=== PATIENT | female | born 1960 | race Two or more races ===

== ENCOUNTER 2022-01-25 13:11 | Inpatient (IN) | payer MEDICAID, OTHER ==
[~2022-01-25] VITALS: Ht 172.7 cm; Wt 99.0 kg
[2022-01-25 15:14] LABS: White Blood Cell 11.2 10^3/uL (4.4-10.8)
[2022-01-25 15:15] LABS: Basophils # (auto) 0 10 ^3/uL (0-0.2); Eosinophils # (auto) 0.1 10 ^3/uL (0-0.8); Eosinophils % (auto) 0.8 % (0.0-7.0); Hemoglobin 14.1 g/dL (12.2-16.2); Lymphocytes # (auto) 4.2 10 ^3/uL (0.4-5.4); Lymphocytes % (auto) 37.5 % (10.0-50.0); Monocytes # (auto) 0.8 10 ^3/uL (0-1.3); Monocytes % (auto) 7.4 % (0.0-12.0); Neutrophils # (auto) 6.1 10 ^3/uL (1.6-8.6); Nucleated Red Blood Cells % 0.1 %; Red Blood Cells 4.01 10^6/uL (4.0-5.20)
[2022-01-25 15:16] LABS: Hematocrit 41.2 % (36.0-46.0); Mean Corpuscular Hemoglobin 35.2 pg (28.0-32.0); Mean Corpuscular Hgb Conc. 34.3 g/dL (32.0-36.0); Mean Corpuscular Volume 102.6 fL (80.0-100.0); Red Cell Distribution Width 15.7 % (11.8-14.3)
[2022-01-25 15:26] LABS: Calcium 8.8 mg/dL (8.5-10.1); Magnesium 2.6 mg/dL (1.6-2.6); Potassium 3.2 mmol/L (3.5-5.1)
[2022-01-25 15:29] LABS: BUN/Creatinine Ratio 10.8; Bilirubin, Total 0.5 mg/dL (0.2-1.0)
[2022-01-25] MEDS ORDERED: ONDANSETRON HCL 4 MG/2 ML VIAL IV PRN (22:00)
[2022-01-25] MEDS ORDERED: HYDROcodone-ACET 5/325MG TAB PO PRN (22:00)
[2022-01-25] MEDS ORDERED: ACETAMINOPHEN 325 MG TAB PO PRN (22:00)
[2022-01-25] MEDS: SODIUM CHLOR 0.9% PF (SALINE LOCK) 10ML VIAL/SYR IV SCH (22:00)
[2022-01-25] MEDS ORDERED: DOCUSATE SOD 100 MG CAP PO PRN (22:00)
[2022-01-25] MEDS ORDERED: ASCO500T11 PO (22:53)
[2022-01-25] MEDS ORDERED: MAGN400T40 PO (22:53)
[2022-01-25] MEDS ORDERED: GABA-339 PO (22:53)
[2022-01-25] MEDS ORDERED: ASPITAB34 OR (22:53)
[2022-01-25] MEDS ORDERED: FURO40TA4 PO (22:53)
[2022-01-25] MEDS ORDERED: ALLO100T PO (22:53)
[2022-01-25] MEDS ORDERED: ATOR-47 PO (22:53)
[2022-01-25] MEDS ORDERED: COLC1TAB3 PO (22:53)
[2022-01-25] MEDS ORDERED: PANT1INJ3 IV (22:53)
[2022-01-25] MEDS ORDERED: CARV3.1240 PO (22:53)
[2022-01-25] MEDS ORDERED: CHOL20007 OR (22:53)
[2022-01-25] MEDS ORDERED: BACL10TA PO (22:53)
[2022-01-25] MEDS ORDERED: NICOTINE 14 MG/24HR TOPICAL PATCH TD ONE (23:00)
[2022-01-25] MEDS ORDERED: MORPHINE SULFATE INJ 2 MG/ml SYRG IV PRN (23:15)
[2022-01-25] MEDS ORDERED: NITROGLYCERIN 0.4 MG SL TAB SL PRN (23:15)
[2022-01-25 23:40] LABS: Free T3 2.74 pg/mL (2.3-4.2); Free T4 (Free Thyroxine) 1.09 ng/dL (0.89-1.76)
[2022-01-25 23:55] VITALS: BP 127/58
[2022-01-26] MEDS: APIXABAN 5 MG TAB PO SCH ×3 (00:26→22:25)
[2022-01-26] MEDS: FAMOTIDINE (10MG/ML) 2ML VL IV SCH ×2 (00:27→09:40)
[2022-01-26] MEDS: POTASSIUM CHL 20MEQ/100ML 100 ML IV SCH ×2 (00:27→05:45)
[2022-01-26] MEDS ORDERED: PANT1INJ3 IV (02:59)
[2022-01-26] MEDS ORDERED: PANT40TA2 PO (02:59)
[2022-01-26] MEDS ORDERED: SENN1TAB14 PO (03:05)
[2022-01-26] MEDS ORDERED: DOCU-94 PO (03:05)
[2022-01-26] MEDS ORDERED: OMEG100078 PO (03:09)
[2022-01-26] MEDS ORDERED: POTA10TA51 PO (03:09)
[2022-01-26 04:46] LABS: Urine Bacteria MANY /hpf (None Seen); Urine Blood Negative /uL (Negative); Urine Hyaline Cast FEW /lpf (0 - 2); Urine Specific Gravity 1.018 (1.001-1.035); Urine WBC 272 /hpf (0 - 5); Urine WBC Clumps PRESENT /hpf (None Seen)
[2022-01-26 05:00] VITALS: BP 118/39
[2022-01-26] MEDS: SODIUM CHLOR 0.9% PF (SALINE LOCK) 10ML VIAL/SYR IV SCH ×3 (05:45→22:20)
[2022-01-26 07:16] LABS: Basophils # (auto) 0 10 ^3/uL (0-0.2); Eosinophils # (auto) 0.1 10 ^3/uL (0-0.8); Eosinophils % (auto) 0.6 % (0.0-7.0); Lymphocytes # (auto) 5.3 10 ^3/uL (0.4-5.4); Nucleated Red Blood Cells % 0.1 %
[2022-01-26 07:18] LABS: Basophils % (auto) 0.2 % (0.0-2.0); Hematocrit 36.4 % (36.0-46.0); Hemoglobin 12.5 g/dL (12.2-16.2); Lymphocytes % (auto) 47.8 % (10.0-50.0); Mean Corpuscular Hemoglobin 35.4 pg (28.0-32.0); Mean Corpuscular Hgb Conc. 34.4 g/dL (32.0-36.0); Mean Corpuscular Volume 102.8 fL (80.0-100.0); Monocytes # (auto) 0.8 10 ^3/uL (0-1.3); Monocytes % (auto) 7.4 % (0.0-12.0); Neutrophils # (auto) 4.9 10 ^3/uL (1.6-8.6); Red Blood Cells 3.54 10^6/uL (4.0-5.20); Red Cell Distribution Width 15.4 % (11.8-14.3); White Blood Cell 11.1 10^3/uL (4.4-10.8)
[2022-01-26 07:29] LABS: Potassium 3.6 mmol/L (3.5-5.1)
[2022-01-26 07:34] LABS: Albumin 2.8 g/dL (3.4-5.0); BUN/Creatinine Ratio 12.9; Bilirubin, Total 0.4 mg/dL (0.2-1.0); Calcium 8.9 mg/dL (8.5-10.1); Total Protein 6.2 g/dL (6.4-8.2)
[2022-01-26 09:00] VITALS: BP 128/48
[2022-01-26] MEDS: ASPirin 81 mg TAB PO SCH (09:40)
[2022-01-26] MEDS ORDERED: FUROSEMIDE 40 MG/4 ML VIAL IV SCH (10:45)
[2022-01-26 13:00] VITALS: BP 112/67
[2022-01-26] MEDS ORDERED: DOCUSATE SOD 100 MG CAP PO PRN (13:30)
[2022-01-26] MEDS ORDERED: SENNA 8.6 MG TAB PO PRN (13:30)
[2022-01-26] MEDS ORDERED: BACLOFEN 10 MG TAB PO PRN (13:30)
[2022-01-26 16:46] VITALS: BP 125/47
[2022-01-26] MEDS: FUROSEMIDE 40 MG TAB PO SCH (17:16)
[2022-01-26 20:00] VITALS: BP 128/48
[2022-01-26 21:58] VITALS: BP 143/67
[2022-01-26] MEDS ORDERED: ATORVASTATIN 20 MG TAB PO SCH (22:00)
[2022-01-26] MEDS: CARVEDILOL 3.125 MG TAB PO SCH (22:25)
[2022-01-26] MEDS: GABAPENTIN 300 MG CAP PO SCH (22:26)
[2022-01-26] MEDS: ASCORBIC ACID 500 MG TAB PO SCH (22:26)
[2022-01-27 05:00] VITALS: BP 128/71
[2022-01-27] MEDS: SODIUM CHLOR 0.9% PF (SALINE LOCK) 10ML VIAL/SYR IV SCH (06:32)
[2022-01-27] MEDS: FUROSEMIDE 40 MG TAB PO SCH (06:33)
[2022-01-27 08:00] VITALS: BP 128/48
[2022-01-27] MEDS ORDERED: cefTRIAXone 1GM/50ML D5W 50 ML IV SCH (09:00)
[2022-01-27 09:46] VITALS: BP 106/47
[2022-01-27] MEDS ORDERED: FAMOTIDINE (10MG/ML) 2ML VL IV SCH (10:00)
[2022-01-27] MEDS ORDERED: MAGNESIUM OXIDE 400 MG TAB PO SCH (10:00)
[2022-01-27] MEDS: ASPirin 81 mg TAB PO SCH (10:00)
[2022-01-27] MEDS ORDERED: ALLOPURINOL 100 MG TAB PO SCH (10:00)
[2022-01-27] MEDS: APIXABAN 5 MG TAB PO SCH (10:00)
[2022-01-27] MEDS ORDERED: NICOTINE 21MG/24 HR TOPICAL PATCH TD SCH (10:00)
[2022-01-27] MEDS: GABAPENTIN 300 MG CAP PO SCH (10:00)
[2022-01-27] MEDS ORDERED: CHOLECALCIFEROL (VITD3) 2,000 UNIT CAP/TAB PO SCH (10:00)
[2022-01-27] MEDS: CARVEDILOL 3.125 MG TAB PO SCH (10:00)
[2022-01-27] MEDS: ASCORBIC ACID 500 MG TAB PO SCH (10:00)
[2022-01-27] MEDS ORDERED: COLCHICINE 0.6 MG CAP PO SCH (10:00)
[2022-01-27] MEDS ORDERED: AZIT500T66 PO (11:56)
[2022-01-27 13:16] VITALS: BP 106/47
== END 2022-01-27 13:30 | disposition home or self-care (01) | DRG 198 ==
LOC: ER 13:11 → TELE 23:04 → TELE-CENTR 23:34
PROVIDERS: ADMIT Nurse Practitioner Family; ATTEND Family Medicine
DX: R07.89 Other chest pain (principal); I25.10 Atherosclerotic heart disease of native coronary artery without angina pectoris; I13.0 Hypertensive heart and chronic kidney disease with heart failure and stage 1 through stage 4 chronic kidney disease, or unspecified chronic kidney disease; B19.10 Unspecified viral hepatitis B without hepatic coma; J18.9 Pneumonia, unspecified organism; E24.9 Cushing's syndrome, unspecified; E88.09 Other disorders of plasma-protein metabolism, not elsewhere classified; I82.501 Chronic embolism and thrombosis of unspecified deep veins of right lower extremity; E87.6 Hypokalemia; E66.01 Morbid (severe) obesity due to excess calories; K50.90 Crohn's disease, unspecified, without complications; F32.A Depression, unspecified; Z20.822 Contact with and (suspected) exposure to COVID-19; M79.7 Fibromyalgia; G47.33 Obstructive sleep apnea (adult) (pediatric); M17.10 Unilateral primary osteoarthritis, unspecified knee; R32 Unspecified urinary incontinence; N18.9 Chronic kidney disease, unspecified; J44.0 Chronic obstructive pulmonary disease with (acute) lower respiratory infection; J44.9 Chronic obstructive pulmonary disease, unspecified; F17.210 Nicotine dependence, cigarettes, uncomplicated; I25.2 Old myocardial infarction; Z68.33 Body mass index [BMI] 33.0-33.9, adult; Z79.01 Long term (current) use of anticoagulants; Z95.1 Presence of aortocoronary bypass graft; Z98.61 Coronary angioplasty status
CPT/HCPCS: 36415; 71045; 80053; 81001; 83036; 83735; 83880; 84439; 84443; 84481; 84484; 85025; 93005; 93306; G0378; J0696; J3480; J3490